=== PATIENT | female | born 1950 | race Caucasian/White ===

== ENCOUNTER 2021-11-23 11:07 | Emergency (ER) | payer MEDICARE ==
--- NOTE | 2021-11-23 11:18 | ERPHSYRPT ---
- History of Present Illness Time Seen by Provider: 11/23/21 11:18 Source: patient Exam Limitations: no limitations Physician History: This is a 71-year-old white female who was working in the yard twisted and tripped over a large stone falling onto her outstretched left hand. She presents with left wrist pain and swelling. Patient does not want any pain medicine at this time. Occurred: just prior to arrival Method of Injury: fell Quality: aching Severity of Pain-Max: mild Severity of Pain-Current: mild Extremities Pain Location: wrist: left Modifying Factors: Improves With: movement Associated Symptoms: none Allergies/Adverse Reactions: amoxicillin Allergy (Verified 11/23/21 11:14) Home Medications: No Reportable Medications [No Reported Medications] 11/23/21 [History] Travel Risk - International Travel Have you traveled outside of the country in past 3 weeks: No - Coronavirus Screening Are you exhibiting any of the following symptoms?: No Close contact with a COVID-19 positive Pt in past 14-21 Days: No - Review of Systems Constitutional: No Symptoms Eyes: No Symptoms Ears, Nose, & Throat: No Symptoms Respiratory: No Symptoms Cardiac: No Symptoms Abdominal/Gastrointestinal: No Symptoms Genitourinary Symptoms: No Symptoms Musculoskeletal: Fall, Injury (Left wrist) Skin: No Symptoms Neurological: No Symptoms Psychological: No Symptoms Endocrine: No Symptoms Hematologic/Lymphatic: No Symptoms Immunological/Allergic: No Symptoms All Other Systems: Reviewed and Negative - Past Medical History Neurological History: No Pertinent History Cardiac History: No Pertinent History Respiratory History: No Pertinent History Endocrine Medical History: No Pertinent History Musculoskeletal History: Osteoarthritis - Nursing Vital Signs Nursing Vital Signs: Initial Vital Signs Temperature 97.0 F 11/23/21 11:15 Pulse Rate 86 11/23/21 11:15 Respiratory Rate 18 11/23/21 11:15 Blood Pressure 162/88 11/23/21 11:15 O2 Sat by Pulse Oximetry 98 11/23/21 11:15 Pain Scale Pain Intensity 4 - Physical Exam General Appearance: no apparent distress, alert, anxiety, thin Eyes, Ears, Nose, Throat Exam: normal ENT inspection, moist mucous membranes Neck Exam: normal inspection, non-tender, supple, full range of motion Cardiovascular/Respiratory Exam: chest non-tender, no respiratory distress Abdominal Exam: non-tender Back Exam: normal inspection, normal range of motion, No CVA tenderness, No vertebral tenderness Shoulder Exam: normal inspection, non-tender, no evidence of injury, normal ROM Elbow/Forearm Exam: normal inspection, non-tender, no evidence of injury, normal ROM Wrist Exam: bone tenderness, deformity (In the region of the distal radius), ecchymosis, limited ROM, soft tissue tenderness, swelling Hand Exam: normal inspection, non-tender, no evidence of injury, normal ROM Neuro/Tendon Exam: normal sensation, normal motor functions, normal tendon functions, no evidence tendon injury Mental Status Exam: alert, oriented x 3, cooperative Skin Exam: normal color, warm, dry SpO2 Interpretation: normal O2 Delivery: Room Air Procedures - Splinting Time of Procedure: 11:33 Location of Splint: Left, Wrist Type of Splint: Orthoglass Short Arm Splint Splint Applied By: ED Nurse Pre-Proc Neuro Vasc Exam: normal Post-Proc Neuro Vasc Exam: neurovascular intact - Course Nursing assessment & vital signs reviewed: Yes Ordered Tests: Active Orders 24 hr Category Date Time Status WRIST (MIN 3 VIEWS) Stat Exams 11/23/21 11:26 Taken - Progress Progress: improved Progress Note: 11/23/21 11:31 X-ray of left wrist shows minimally displaced distal radius fracture. Counseled pt/family regarding: diagnosis, need for follow-up, rad results - Departure Departure Disposition: Home Clinical Impression: Radius distal fracture Condition: Stable Critical Care Time: No Referrals: GINNY DUFFY [Primary Care Provider] - Follow up/PCP as directed Additional Instructions: Wear splint for comfort. Ice pack to area 3 times a day for 10 to 15 minutes at a time. Follow-up at [facility] orthopedic clinic tomorrow morning at 8 AM to 10 AM. No appointment is necessary. It is a walk-in clinic. You also have the option of following up with your orthopedic surgeon of choice. Use Tylenol and ibuprofen for pain control.
[2021-11-23 11:23] VITALS: BP 162/88; PULSE 86; O2SAT 98
--- NOTE | 2021-11-23 12:27 | XRAY ---
Exam: 3 view left wrist series from 11/23/2021. Comparison: None. Indication: 71-year-old female with left wrist pain and swelling; patient fell. Findings: AP, oblique, and lateral images of the left wrist were obtained. There is an impacted, comminuted, primarily transverse fracture of the distal left radius, although there is a comminuted longitudinal fracture fragment which extends into the ulnar aspect of the radiocarpal joint (i.e. intra-articular). There is about 3 mm posterior cortical step-off deformity and slight posterior angulation of the distal fracture fragment on the lateral image. The distal left ulna appears intact, although I note a small sclerotic rimmed apparent cyst within the ulnar styloid process. There is overlying soft tissue swelling in the adjacent region. The carpal scaphoid bone appears intact. The bones are demineralized. I cannot exclude a small intraosseous cyst within the waist of the carpal scaphoid bone. Minimal degenerative changes are seen within the radial aspect of the carpus. Impression: 1. Mildly impacted and comminuted fracture of the distal left radius which extends into the ulnar aspect of the radiocarpal joint. See above. 2. Although there is some focal soft tissue swelling overlying the ulnar styloid process, I see no definite fracture of the distal left ulna/ulnar styloid process. I do note a small sclerotic rimmed bone cyst within the ulnar styloid process. I believe there is also a small intraosseous cyst within the middle third of the scaphoid bone without fracture.
== END 2021-11-23 12:00 | disposition home or self-care (01) ==
LOC: ED 11:07
DX: S52.502A Unspecified fracture of the lower end of left radius, initial encounter for closed fracture (principal); W01.0XXA Fall on same level from slipping, tripping and stumbling without subsequent striking against object, initial encounter; Y93.H9 Activity, other involving exterior property and land maintenance, building and construction; Y92.007 Garden or yard of unspecified non-institutional (private) residence as the place of occurrence of the external cause
CPT/HCPCS: 29125; 73110; 99283